=== PATIENT | male | born 1990 | race Caucasian/White ===

== ENCOUNTER 2022-06-16 12:45 | Emergency (ER) | payer OTHER ==
[2022-06-16] MEDS ORDERED: methylPREDNISolone Sod Succ/PF 125 MG/2 ML VIAL ONE (14:54)
== END 2022-06-16 15:30 | disposition home or self-care (01) ==
LOC: CSHERS 12:45
DX: B34.9 Viral infection, unspecified (principal); I10 Essential (primary) hypertension
CPT/HCPCS: 87804; 96372; 99284; J2930

== ENCOUNTER 2024-01-26 14:55 | Inpatient (IN) | payer BC, SELFPAY ==
[~2024-01-26 14:55] MED LIST: Iopamidol 300 61% 100 ML VIAL FS ONE
[2024-01-26] MEDS ORDERED: Morphine 4 MG/ML VIAL ONE (15:30)
[2024-01-26] MEDS ORDERED: Ondansetron PF 4 MG/2 ML Vial ONE (15:30)
[2024-01-26] MEDS ORDERED: HYDROmorphone 0.5 MG/0.5 ML SYRINGE ONE (15:40)
[2024-01-26 15:54] LABS: ALT (SGPT) 106 U/L (8-55); AST (SGOT) 56 U/L (5-34); Albumin 4.1 g/dL (3.5-5.0); Alkaline Phosphatase 11 U/L (40-110); Anion Gap 16 mmol/L (10-20); BUN (Urea Nitrogen) 28 mg/dL (8.9-20.6); Bilirubin, Total 1.2 mg/dL (0.2-1.2); Calc. Creatinine Clearance 0 mL/min (70-130); Calcium 10.3 mg/dL (7.8-10.44); Carbon Dioxide 23 mmol/L (22-29); Chloride 104 mmol/L (98-107); Estimated GFR 39; Globulin 4.1 g/dL (2.4-3.5); Glucose 129 mg/dL (70-105); Lipase 43 U/L (8-78); Potassium 4.4 mmol/L (3.5-5.1); Protein, Total 8.2 g/dL (6.0-8.3); Sodium 139 mmol/L (136-145)
[2024-01-26 15:58] LABS: #Basophils 0.02 10x3/uL (0.0-0.2); #Monocytes 0.61 10x3/uL (0.0-1.1); #Neutrophils 9.99 10x3/uL (1.5-8.4); %Basophils 0.2 % (0.0-2.0); %Monocytes 5.1 % (0.0-10.0); %Neutrophils 83.8 % (40.0-75.0); Hematocrit 52.3 % (38.8-50.0); Hemoglobin 17.3 g/dL (13.5-17.5); Mean Corpuscular HGB CONC 33.1 g/dL (32.0-36.0); Mean Corpuscular Hemoglobin 27.4 pg (27.0-33.0); Mean Corpuscular Volume 82.8 fL (81.2-95.1); Platelet Count 330 10x3/uL (150-450); RBC Distribution Width 14.5 % (11.5-14.5); Red Blood Cell (RBC) Count 6.32 10x6/uL (4.32-5.72); White Blood Cell (WBC) Count 11.9 10x3/uL (3.5-10.5)
[2024-01-26] MEDS ORDERED: cloNIDine 0.1 MG TAB ONE (17:13)
[2024-01-26] MEDS ORDERED: Labetalol HCl 100 MG/20 ML VIAL ONE (18:05)
[2024-01-26 18:25] LABS: Lactic Acid 1.3 mmol/L (0.5-2.2)
[2024-01-26 18:28] LABS: Bilirubin Neg (Negative); Blood, Urine 10 (Negative); Clarity Clear (Clear); Glucose, Urine (Dipstick) Normal (Negative); Ketone, Urine Negative (Negative); Leukocyte Negative (Negative); Nitrite Negative (Negative); Protein, Urine (Dipstick) 100 mg/dl (Neg-Trace); Urobilinogen Normal mg/dL (Less than 2)
[2024-01-26 18:39] LABS: Bacteria/HPF Rare-Few HPF (None Seen); CAUTI Indications for Culture Pelvic or flank pain; RBC/HPF 0-3 HPF (0-3); Squamous Epithelial 0-3 HPF (0-3); Urine Culture Reflex No No; WBC/HPF 0-3 HPF (0-3)
[2024-01-26] MEDS ORDERED: Nitroglycerin 0.4 MG TAB 1 EACH ONE (18:42)
[2024-01-26] MEDS ORDERED: Nitroglycerin 2% Ointment 1 INCH/1 GM Packet ONE (18:42)
[2024-01-26 22:03] VITALS: BMI 34.8
[2024-01-26] MEDS: Lactated Ringer's 1,000 ML IV SCH (23:18)
[2024-01-26] MEDS: Morphine 4 MG/ML VIAL SLOW IVP PRN (23:18)
[2024-01-26] MEDS: Piperacillin/Tazobactam 3.375 GM in Sodium Chloride 0.9% 100 ML IVPB SCH (23:19)
[2024-01-26] MEDS: Famotidine/PF 20 mg/2ml Vial SLOW IVP SCH (23:20)
[2024-01-27] MEDS: Piperacillin/Tazobactam 3.375 GM in Sodium Chloride 0.9% 100 ML IVPB SCH (02:07)
[2024-01-27] MEDS: hydrALAZINE 20 MG/ML VIAL SLOW IVP PRN ×2 (04:37→17:01)
[2024-01-27 05:26] LABS: ALT (SGPT) 78 U/L (8-55); AST (SGOT) 34 U/L (5-34); Albumin 3.3 g/dL (3.5-5.0); Alkaline Phosphatase 9 U/L (40-110); Anion Gap 11 mmol/L (10-20); BUN (Urea Nitrogen) 22 mg/dL (8.9-20.6); Bilirubin, Total 1.4 mg/dL (0.2-1.2); Calc. Creatinine Clearance 95 mL/min (70-130); Calcium 8.7 mg/dL (7.8-10.44); Carbon Dioxide 26 mmol/L (22-29); Chloride 103 mmol/L (98-107); Estimated GFR 56; Globulin 3.1 g/dL (2.4-3.5); Glucose 108 mg/dL (70-105); Potassium 4.3 mmol/L (3.5-5.1); Protein, Total 6.4 g/dL (6.0-8.3); Sodium 136 mmol/L (136-145)
[2024-01-27 05:33] LABS: #Basophils 0.01 10x3/uL (0.0-0.2); #Monocytes 1.07 10x3/uL (0.0-1.1); #Neutrophils 8.95 10x3/uL (1.5-8.4); %Basophils 0.1 % (0.0-2.0); %Lymphocytes 13.4 % (18.0-47.0); %Monocytes 9.2 % (0.0-10.0); %Neutrophils 76.5 % (40.0-75.0); Mean Corpuscular HGB CONC 31.9 g/dL (32.0-36.0); Mean Corpuscular Volume 84.5 fL (81.2-95.1); Mean Platelet Volume 10.4 fL (7.4-10.4); Platelet Count 267 10x3/uL (150-450); RBC Distribution Width 14.7 % (11.5-14.5); Red Blood Cell (RBC) Count 5.56 10x6/uL (4.32-5.72); White Blood Cell (WBC) Count 11.7 10x3/uL (3.5-10.5)
[2024-01-27] MEDS: Famotidine/PF 20 mg/2ml Vial SLOW IVP SCH (09:28)
[2024-01-27] MEDS: Ketorolac Tromethamine 30 MG (1 mL) VIAL IVP SCH (09:34)
[2024-01-27] MEDS ORDERED: Bupivacaine PF 0.5% 30 ML VIAL ONE (13:08)
[2024-01-27] MEDS ORDERED: EPINEPHrine 1 MG/ML VIAL ONE (13:08)
[2024-01-27] MEDS ORDERED: PROPOFOL 20 ML ONE (13:14)
[2024-01-27] MEDS ORDERED: Rocuronium Bromide 10 MG/ML (10ML VIAL) ONE (13:14)
[2024-01-27] MEDS ORDERED: Midazolam HCl 2 mg/2 ml Vial ONE ×2 (13:14→13:18)
[2024-01-27] MEDS ORDERED: Dexamethasone 20 MG/5 ML VIAL ONE (13:14)
[2024-01-27] MEDS ORDERED: Lidocaine 1% PF 5 ML VIAL ONE (13:14)
[2024-01-27] MEDS ORDERED: Ondansetron PF 4 MG/2 ML Vial ONE (13:14)
[2024-01-27] MEDS ORDERED: Fentanyl 250 MCG/5 ML VIAL ONE (13:14)
[2024-01-27] MEDS ORDERED: Sevoflurane 250 ML INH ANEST BOTTLE ONE (13:15)
[2024-01-27] MEDS ORDERED: SUGAMMADEX SODIUM 200 MG/2 ML VIAL ONE (13:21)
[2024-01-27] MEDS: HYDROcodone/Acetaminophen 7.5/325 mg Tablet PO PRN (16:15)
[2024-01-27] MEDS: Ondansetron PF 4 MG/2 ML Vial IVP PRN (17:08)
[2024-01-27] MEDS: Ketorolac Tromethamine 30 MG (1 mL) VIAL IVP PRN (19:24)
[2024-01-27] MEDS: Morphine 4 MG/ML VIAL SLOW IVP PRN (22:58)
[2024-01-27] MEDS: Lorazepam 2 MG/ML VIAL SLOW IVP SCH (23:00)
[2024-01-28 06:17] LABS: Anion Gap 11 mmol/L (10-20); BUN (Urea Nitrogen) 20 mg/dL (8.9-20.6); Calc. Creatinine Clearance 101 mL/min (70-130); Calcium 8.8 mg/dL (7.6-10.4); Carbon Dioxide 25 mmol/L (22-29); Chloride 104 mmol/L (98-107); Estimated GFR 59; Glucose 113 mg/dL (70-105); Potassium 4.3 mmol/L (3.5-5.1); Sodium 136 mmol/L (136-145)
[2024-01-28 06:34] LABS: #Basophils 0.02 10x3/uL (0.0-0.2); #Monocytes 0.94 10x3/uL (0.0-1.1); #Neutrophils 11.41 10x3/uL (1.5-8.4); %Basophils 0.1 % (0.0-2.0); %Neutrophils 85.3 % (40.0-75.0); Hemoglobin 16.1 g/dL (13.5-17.5); Mean Corpuscular HGB CONC 32.9 g/dL (32.0-36.0); Mean Corpuscular Hemoglobin 27.3 pg (27.0-33.0); Mean Corpuscular Volume 83.2 fL (81.2-95.1); Mean Platelet Volume 10.2 fL (7.4-10.4); Platelet Count 293 10x3/uL (150-450); RBC Distribution Width 14.6 % (11.5-14.5); Red Blood Cell (RBC) Count 5.89 10x6/uL (4.32-5.72); White Blood Cell (WBC) Count 13.4 10x3/uL (3.5-10.5)
[2024-01-28 06:35] LABS: ALT (SGPT) 91 U/L (8-55); AST (SGOT) 37 U/L (5-34); Albumin 3.3 g/dL (3.5-5.0); Alkaline Phosphatase 11 U/L (40-110); Bilirubin, Total 1.9 mg/dL (0.2-1.2); Globulin 3.1 g/dL (2.4-3.5); Protein, Total 6.4 g/dL (6.0-8.3)
[2024-01-28] MEDS: cloNIDine 0.1 MG TAB PO SCH (12:34)
[2024-01-28] MEDS ORDERED: Lorazepam 2 MG/ML VIAL SLOW IVP PRN (14:46)
[2024-01-28] MEDS: Ketorolac Tromethamine 30 MG (1 mL) VIAL IVP SCH (17:10)
[2024-01-28] MEDS ORDERED: Morphine 4 MG/ML VIAL SLOW IVP PRN (18:36)
[2024-01-28] MEDS ORDERED: Ibuprofen 600 MG TAB PO PRN (18:37)
[2024-01-28] MEDS: clonazePAM 1 MG TAB PO SCH (22:33)
[2024-01-29 04:25] LABS: #Basophils 0.03 10x3/uL (0.0-0.2); #Eosinphils 0.05 10x3/uL (0.0-0.5); #Monocytes 1.66 10x3/uL (0.0-1.1); #Neutrophils 7.48 10x3/uL (1.5-8.4); %Basophils 0.2 % (0.0-2.0); %Eosinophils 0.4 % (0.0-6.0); %Lymphocytes 24.3 % (18.0-47.0); %Monocytes 13.5 % (0.0-10.0); %Neutrophils 60.7 % (40.0-75.0); Mean Corpuscular HGB CONC 32.7 g/dL (32.0-36.0); Mean Corpuscular Hemoglobin 27.3 pg (27.0-33.0); Mean Corpuscular Volume 83.6 fL (81.2-95.1); Platelet Count 295 10x3/uL (150-450); RBC Distribution Width 14.6 % (11.5-14.5); Red Blood Cell (RBC) Count 5.86 10x6/uL (4.32-5.72); White Blood Cell (WBC) Count 12.3 10x3/uL (3.5-10.5)
[2024-01-29 04:39] LABS: ALT (SGPT) 66 U/L (8-55); AST (SGOT) 27 U/L (5-34); Albumin 3.1 g/dL (3.5-5.0); Alkaline Phosphatase 10 U/L (40-110); Anion Gap 14 mmol/L (10-20); BUN (Urea Nitrogen) 19 mg/dL (8.9-20.6); Bilirubin, Total 1.9 mg/dL (0.2-1.2); Calc. Creatinine Clearance 102 mL/min (70-130); Calcium 8.7 mg/dL (7.8-10.44); Carbon Dioxide 25 mmol/L (22-29); Chloride 101 mmol/L (98-107); Estimated GFR 60; Glucose 85 mg/dL (70-105); Lipase 56 U/L (8-78); Protein, Total 6.1 g/dL (6.0-8.3); Sodium 136 mmol/L (136-145)
[2024-01-29 04:57] LABS: Thyroid Stimulating Hormone 3.3152 uIU/mL (0.35-4.94)
[2024-01-29] MEDS ORDERED: LevoFLOXacin 500 MG TAB PO SCH (06:00)
[2024-01-29] MEDS: LevoFLOXacin 500 MG TAB PO SCH (06:06)
[2024-01-29] MEDS: Polyethylene Glycol 3350 17 GM Packet PO SCH (07:55)
[2024-01-29] MEDS: clonazePAM 1 MG TAB PO SCH (07:56)
[2024-01-29 12:26] LABS: T4 5.05 ug/dL (4.87-11.72)
[2024-01-29 12:47] VITALS: BP 187/101; TEMP 98.1
[2024-02-03 18:38] LABS: Metanephrine,Plasma 36.9 pg/mL (0.0-88.0); Normetanephrine,Pl 69.3 pg/mL (0.0-210.1)
== END 2024-01-29 14:45 | disposition home or self-care (01) | DRG 418 ==
LOC: CSHERS 14:55 → CSHERHOLD 17:14 → CSHTELE 21:51
PROVIDERS: ADMIT Surgery; ATTEND Surgery
PROC: 0FT44ZZ Resection of Gallbladder, Percutaneous Endoscopic Approach (ICD-10-PCS; principal; 2024-01-27)
DX: K80.00 Calculus of gallbladder with acute cholecystitis without obstruction (principal); L76.32 Postprocedural hematoma of skin and subcutaneous tissue following other procedure; I10 Essential (primary) hypertension; F41.9 Anxiety disorder, unspecified; F17.200 Nicotine dependence, unspecified, uncomplicated; E86.0 Dehydration; E66.9 Obesity, unspecified; Z91.013 Allergy to seafood; Z79.899 Other long term (current) drug therapy; Z68.34 Body mass index [BMI] 34.0-34.9, adult
CPT/HCPCS: 36415; 36416; 74177; 74181; 80053; 81001; 83605; 83690; 83835; 84436; 84443; 85025; 86316; 88304; 96374; 96375; C1713; J0171; J0360; J0665; J1100; J1170; J1885; J2060; J2250; J2270; J2405; J2543; J2704; J3010; J3490; J7120; Q9967; S0028

== ENCOUNTER 2024-02-04 14:07 | Emergency (ER) | payer BC ==
[2024-02-04 15:48] LABS: #Basophils 0.06 10x3/uL (0.0-0.2); #Eosinphils 0.11 10x3/uL (0.0-0.5); #Neutrophils 4.02 10x3/uL (1.5-8.4); %Basophils 0.8 % (0.0-2.0); %Eosinophils 1.6 % (0.0-6.0); %Lymphocytes 28.8 % (18.0-47.0); %Monocytes 9.9 % (0.0-10.0); %Neutrophils 56.8 % (40.0-75.0); Hematocrit 42.5 % (38.8-50.0); Hemoglobin 14.2 g/dL (13.5-17.5); Mean Corpuscular HGB CONC 33.4 g/dL (32.0-36.0); Mean Corpuscular Hemoglobin 27.7 pg (27.0-33.0); Mean Platelet Volume 9.8 fL (7.4-10.4); Platelet Count 309 10x3/uL (150-450); RBC Distribution Width 14.2 % (11.5-14.5); Red Blood Cell (RBC) Count 5.12 10x6/uL (4.32-5.72); White Blood Cell (WBC) Count 7.1 10x3/uL (3.5-10.5)
[2024-02-04 15:56] LABS: INR-International Normal Ratio 1.1; PTT 23.6 sec (22.0-33.0); Prothrombin Time 11.4 sec (9.5-12.1)
[2024-02-04 16:00] LABS: ALT (SGPT) 38 U/L (8-55); AST (SGOT) 26 U/L (5-34); Alkaline Phosphatase 11 U/L (40-110); Anion Gap 12 mmol/L (10-20); BUN (Urea Nitrogen) 14 mg/dL (8.9-20.6); Bilirubin, Total 0.6 mg/dL (0.2-1.2); Calc. Creatinine Clearance 0 mL/min (70-130); Calcium 8.6 mg/dL (7.8-10.44); Carbon Dioxide 25 mmol/L (22-29); Chloride 103 mmol/L (98-107); Estimated GFR 56; Globulin 2.6 g/dL (2.4-3.5); Glucose 89 mg/dL (70-105); Lipase 58 U/L (8-78); Protein, Total 5.6 g/dL (6.0-8.3); Sodium 136 mmol/L (136-145)
== END 2024-02-04 16:56 | disposition home or self-care (01) ==
LOC: CSHERS 14:07
DX: T81.30XA Disruption of wound, unspecified, initial encounter (principal); G89.18 Other acute postprocedural pain; I10 Essential (primary) hypertension
CPT/HCPCS: 74177; 80053; 83690; 85025; 85610; 85730; Q9967